=== PATIENT | female | born 1980 | race Caucasian/White ===

== ENCOUNTER 2016-08-02 08:00 | Outpatient (CLI) | payer MEDICAID | END 2016-08-02 08:01 | disposition home or self-care (01) | DX: Z36 Encounter for antenatal screening of mother (principal) ==

== ENCOUNTER 2016-08-14 22:34 | Inpatient (IN) | payer MEDICAID ==
[2016-08-15] MEDS ORDERED: ONDANSETRON 4 MG/2 ML VIAL IVP PRN (00:10)
[2016-08-15] MEDS ORDERED: fentaNYL 100 MCG/2 ML VIAL IVP PRN (00:10)
[2016-08-15] MEDS ORDERED: SODIUM CHLORIDE FLUSH 0.9% 10 ML SYRINGE IVP ONE ×3 (00:18→09:32)
[2016-08-15] MEDS ORDERED: PENICILLIN G POTASSIUM 5,000,000 UNIT in SODIUM CHLORIDE 0.9% MINIBAG 100 ML IV ONE (00:21)
[2016-08-15] MEDS ORDERED: LACTATED RINGERS 1,000 ML IV SCH (00:25)
[2016-08-15] MEDS ORDERED: LIDOCAINE 1% 50 ML MDV ONE (03:24)
[2016-08-15] MEDS ORDERED: OXYTOCIN/LACTATED RINGERS 250 ML IV ONE (03:56)
[2016-08-15] MEDS ORDERED: PENICILLIN G POTASSIUM 2,500,000 UNIT in SODIUM CHLORIDE 0.9% 100ML 100 ML IV SCH (05:00)
[2016-08-15] MEDS ORDERED: oxyCOD/ACETAMIN 5 MG/325 MG TABLET PO PRN (05:43)
[2016-08-15] MEDS ORDERED: ONDANSETRON ODT 4 MG TABLET PO PRN (05:43)
[2016-08-15] MEDS ORDERED: HYDROCORTISONE/PRAMOXINE 10 GM PR PRN (05:43)
[2016-08-15] MEDS ORDERED: ACETAMINOPHEN 325 MG TABLET PO PRN (05:43)
[2016-08-15] MEDS: IBUPROFEN 800 MG TABLET PO SCH ×3 (07:13→19:20)
[2016-08-15] MEDS: SIMETHICONE CHEW 80 MG TABLET PO SCH ×3 (07:14→23:06)
[2016-08-15] MEDS: DOCUSATE SODIUM 100 MG CAPSULE PO SCH ×2 (17:52→20:30)
[2016-08-16] MEDS: IBUPROFEN 800 MG TABLET PO SCH ×2 (01:47→08:50)
[2016-08-16] MEDS: SIMETHICONE CHEW 80 MG TABLET PO SCH (07:46)
[2016-08-16] MEDS: DOCUSATE SODIUM 100 MG CAPSULE PO SCH (08:50)
== END 2016-08-16 13:40 | disposition home or self-care (01) | DRG 775 ==
PROC: 10E0XZZ Delivery of Products of Conception, External Approach (ICD-10-PCS; principal; 2016-08-15)
DX: O99.824 Streptococcus B carrier state complicating childbirth (principal); O62.3 Precipitate labor; Z87.891 Personal history of nicotine dependence; Z3A.37 37 weeks gestation of pregnancy; Z37.0 Single live birth

== ENCOUNTER 2018-09-14 10:36 | Outpatient (CLI) | payer MEDICAID ==
--- NOTE | 2018-09-14 15:04 | Mammography Report ---
Reason: BREAST MASS OR LUMP Procedure Date: 09/14/2018 Accession Number: [id number] / [id number] Procedure: SAMEERA - Diagnostic Dig Bilat CPT Code: FULL RESULT: EXAM: Diagnostic Dig Bilat DATE: 09/14/2018 11:17 AM CLINICAL HISTORY: Palpable left breast lump which has since resolved following antibiotic therapy. No reported risk factors. TECHNIQUE: Bilateral CC and MLO as well as left mL images are obtained. Bilateral focused breast ultrasound was performed. COMPARISON: None FINDINGS: The breasts demonstrate scattered fibroglandular densities bilaterally. In the right upper outer breast, 11 cm from the nipple is a cluster of small well-circumscribed nodules individually measuring 5 mm or less on MLO image 7 and CC image 15. Similarly, in the left posterior lateral breast approximately 9 cm from the nipple is a cluster of nodules individually measuring 5 mm or less on MLO image 13 and CC image 9. Focused right breast ultrasound demonstrates an interconnected cluster of cysts with vascularity within the interstitium by color Doppler, well demarcated margins, increased through transmission and complex avascular content with individual cysts measuring up to 0.5 cm. In the left breast, a similar cluster of cysts with complex contents, increased through transmission and demonstrable blood flow in the intervening interstitium is identified with a clear connection to the glandular ductal system. Given bilateral similarity in appearance, the findings are felt to be ductal in origin on both sides, probably benign. No suspicious architectural distortions, calcifications or masses are identified on either side. IMPRESSION: Probable benign findings RECOMMENDATION: Recommend diagnostic bilateral breast ultrasound in 6 months. BIRADS CATEGORY 3 STANDARD QUALIFYING STATEMENTS: 1. This examination was not reviewed with the aid of Computer-Aided Detection (CAD). 2. A negative or benign imaging report should not delay biopsy if clinically suspicious findings are present. Consider surgical consultation if warrented. More than 5% of cancers are not identified by imaging. 3. Dense breasts may obscure an underlying neoplasm. 4. This examination was reviewed with the aid of 3D imaging (tomography).
== END 2018-09-14 10:37 | disposition home or self-care (01) ==
LOC: DI 10:36
PROVIDERS: ATTEND Obstetrics & Gynecology
DX: N63.20 Unspecified lump in the left breast, unspecified quadrant (principal)
CPT/HCPCS: 76642; 77066

== ENCOUNTER 2021-06-22 12:44 | Outpatient (CLI) | payer MEDICAID ==
--- NOTE | 2021-06-23 14:09 | Mammography Report ---
BILATERAL DIGITAL DIAGNOSTIC MAMMOGRAM 3D/2D: 06/22/2021 CLINICAL: Follow up of the bilateral breast, due for bilateral imaging. Comparison is made to exams dated: 09/14/2018 ultrasound and 09/14/2018 mammogram - [facility]. The tissue of both breasts is heterogeneously dense. This may lower the sensitivity of m ammography. There are stable masses in both breasts. No significant masses, calcifications, or other findings are seen in either breast. There has been no significant interval change. IMPRESSION: INCOMPLETE: NEEDS ADDITIONAL IMAGING EVALUATION Stable appearance of bilateral breast masses as described on August 2018 mammograms. These have rem ained stable for over two years and are most certainly benign. However, these correlated with probabl y benign masses seen on prior ultrasound evaluation and remain indeterminate. An ultrasound is recommended for further evaluation and is scheduled to immediately follow this exami nation. This exam was interpreted at Station ID: [id number]. NOTE: For mammograms, a report in lay terms will be sent to the patient. Approximately 15% of breast malignancies will not be visualized mammographically. In the management of a palpable breast mass, a negative mammogram must not discourage biopsy of a clinically suspicious lesion. Electronically Signed By: Dieter Barcenas M.D. aty/:06/22/2021 15:05:18 ACR BI-RADS Category 0: Incomplete 3340F PARENCHYMAL PATTERN: (D) - The breast(s) demonstrate(s) heterogeneously dense fibroglandular jennifer howell. BI-RADS CATEGORY: (0) - 0 Ultrasound [id number] Immediate follow-up LATERALITY: (B)
--- NOTE | 2021-06-23 14:09 | Ultrasound Report ---
LIMITED ULTRASOUND OF RIGHT BREAST: 06/22/2021 CLINICAL: Patient returns for sonographic evaluation of right breast mass. Comparison is made to exams dated: 06/22/2021 mammogram, 09/14/2018 ultrasound, and 09/14/2018 mammogra [facility]. Color flow ultrasound of the right breast 9 o'clock region was performed. Valdes scale images of the r eal-time examination were reviewed. There is a 0.6 cm x 0.4 cm x 0.5 cm oval mass with a circumscribed margin in the right breast at 9 o' clock posterior depth 9 cm from the nipple. This oval mass is hypoechoic. This abnormality is not s ignificantly changed and correlates with mammography findings. Color flow imaging demonstrates that there is an adjacent vascularity. IMPRESSION: BENIGN There is no sonographic evidence of malignancy. The 0.6 cm x 0.4 cm x 0.5 cm oval mass in the right breast resembles a lymph node or a fibroadenoma a nd is benign as it has remained stable for over two years. A 1 year screening mammogram is recommended. Findings and recommendations were conveyed to the patient during today's evaluation. This exam was interpreted at Station ID: [id number]. Electronically Signed By: Dieter Barcenas M.D. aty/:06/22/2021 15:09:27 Ultrasound BI-RADS: 2 Benign BI-RADS CATEGORY: (2) - 2 RECOMMENDATION: (ANNUAL) - Recommend routine annual screening mammography. [id number] 1 year screening LATERALITY: (B)
--- NOTE | 2021-06-23 14:09 | Ultrasound Report ---
LIMITED ULTRASOUND OF LEFT BREAST: 06/22/2021 CLINICAL: Patient returns for sonographic evaluation of left breast mass. Comparison is made to exams dated: 06/22/2021 mammogram, 09/14/2018 ultrasound, and 09/14/2018 mammogra - [facility]. Color flow ultrasound of the left breast 3 o'clock region was performed. Valdes scale images of the r eal-time examination were reviewed. There is a cluster of oval masses with circumscribed margins in the left breast at 3 o'clock posterio r depth. This cluster of oval masses is hypoechoic with possible fatty hilum and hilar vascularity. These abnormalities are not significantly changed. They measure up to 0.5 cm and 1.0 cm respectivel y. They are again visualized immediately adjacent to each other. IMPRESSION: BENIGN There is no sonographic evidence of malignancy. The cluster of oval masses in the left breast most likely represent adjacent lymph nodes versus less likely fibroadenomas and is benign as they have remained stable for over two years. A 1 year screening mammogram is recommended. Findings and recommendations were conveyed to the patient during today's evaluation. This exam was interpreted at Station ID: [id number]. Electronically Signed By: Dieter Barcenas M.D. aty/:06/22/2021 15:12:59 Ultrasound BI-RADS: 2 Benign BI-RADS CATEGORY: (2) - 2 RECOMMENDATION: (ANNUAL) - Recommend routine annual screening mammography. [id number] 1 year screening LATERALITY: (B)
== END 2021-06-22 12:45 | disposition home or self-care (01) ==
LOC: DI 12:44
PROVIDERS: ATTEND Obstetrics & Gynecology
DX: R92.8 Other abnormal and inconclusive findings on diagnostic imaging of breast (principal)

== ENCOUNTER 2021-09-24 09:24 | Outpatient (CLI) | payer MEDICAID ==
[2021-09-24 12:17] LABS: BASOPHILS # (AUTO) 0.1 10^3/uL (0.0-0.1); BASOPHILS % (AUTO) 0.8 %; EOSINOPHILS # (AUTO) 0.1 10^3/uL (0.0-0.7); EOSINOPHILS % (AUTO) 1.5 %; HGB - HEMOGLOBIN 15.1 g/dL (12.0-16.0); LYMPHOCYTES # (AUTO) 2.4 10^3/uL (1.5-3.5); LYMPHOCYTES % (AUTO) 28.5 %; MEAN CORPUSCULAR HEMOGLOBIN 30.9 pg (27.0-31.0); MEAN CORPUSCULAR HGB CONC 32.8 g/dL (32.0-36.0); MEAN CORPUSCULAR VOLUME 94.3 fL (81.0-99.0); MONOCYTES # (AUTO) 0.6 10^3/uL (0.0-1.0); MONOCYTES % (AUTO) 6.8 %; NEUTROPHILS # (AUTO) 5.2 10^3/uL (1.5-6.6); NEUTROPHILS % (AUTO) 62.2 %; PLT - PLATELET COUNT 225 10^3/uL (130-450); RED BLOOD COUNT 4.88 10^6/uL (4.20-5.40); RED CELL DISTRIBUTION WIDTH 12.8 % (12.0-15.0); WHITE BLOOD COUNT 8.4 x10^3/uL (4.8-10.8)
[2021-09-24 12:36] LABS: ALBUMIN 4.4 g/dL (3.2-5.5); ALBUMIN/GLOBULIN RATIO 1.4 (1.0-2.2); ALKALINE PHOSPHATASE 32 IU/L (42-121); ALT ALANINE AMINOTRANSFERASE 15 IU/L (10-60); AST ASPARTATE AMINOTRANSFERASE 14 IU/L (10-42); BILIRUBIN,TOTAL 0.9 mg/dL (0.2-1.0); BUN - BLOOD UREA NITROGEN 14 mg/dL (6-20); CALCIUM 9.6 mg/dL (8.5-10.3); CARBON DIOXIDE - CO2 26 mmol/L (21-32); CHLORIDE 102 mmol/L (101-111); CHOL/HDL RATIO 3.5 (<4.4); CHOLESTEROL 131 mg/dL; CREATININE 0.8 mg/dL (0.4-1.0); GFR - MDRD 79 (>89); GLUCOSE 92 mg/dL (70-100); HDL CHOLESTEROL 37 mg/dL; LDL CHOLESTEROL,CALCULATED 81 mg/dL; LDL/HDL RATIO 2.2 (<4.4); POTASSIUM 4.6 mmol/L (3.5-5.0); SODIUM 134 mmol/L (135-145); TOTAL PROTEIN 7.5 g/dL (6.7-8.2); TRIGLYCERIDES 63 mg/dL; VLDL CHOLESTEROL 13 mg/dL
[2021-09-24 12:41] LABS: THYROID STIMULATING HORMONE 1.4 uIU/mL (0.34-5.60)
== END 2021-09-24 09:25 | disposition home or self-care (01) ==
LOC: LAB.N 09:24
PROVIDERS: ATTEND Registered Nurse
DX: Z13.228 Encounter for screening for other metabolic disorders (principal); Z13.29 Encounter for screening for other suspected endocrine disorder; Z13.0 Encounter for screening for diseases of the blood and blood-forming organs and certain disorders involving the immune mechanism
CPT/HCPCS: 36415; 80050; 80061; 83721

== ENCOUNTER 2022-08-25 12:39 | Outpatient (CLI) | payer MEDICAID ==
--- NOTE | 2022-08-26 08:25 | Mammography Report ---
BILATERAL DIGITAL SCREENING MAMMOGRAM 3D/2D: 08/25/2022 CLINICAL: Routine screening. Comparison is made to exams dated: 06/22/2021 ultrasound, 06/22/2021 ultrasound, 06/22/2021 mammogram, 09/14/2018 ultrasound, and 09/14/2018 mammogram - [facility]. Both breasts are heterogeneously dense, which may obscure small masses (category c / 51-75% glandular tissue). There is a possible developing new irregular high density asymmetry with a spiculated margin in the r ight breast at 11 o'clock middle depth. There is architectural distortion associated with the asymme try. No other significant masses, calcifications, or other findings are seen in either breast. IMPRESSION: INCOMPLETE: NEEDS ADDITIONAL IMAGING EVALUATION The possible developing new irregular high density asymmetry in the right breast is indeterminate. A dditional views with possible ultrasound are recommended. Based on the Tyrer Cuzick model (a risk assessment model) the patients lifetime risk is 10.2% and he r 10 year risk is 1.5%. According to the ACR, ACS, and NCCN guidelines, an annual breast MRI exam kayley ng with mammogram is recommended if the patients lifetime risk is 20% or greater. This exam was interpreted at Station ID: [id number]. NOTE: For mammograms, a report in lay terms will be sent to the patient. Approximately 15% of breast malignancies will not be visualized mammographically. In the management of a palpable breast mass, a negative mammogram must not discourage biopsy of a clinically suspicious lesion. Electronically Signed By: Karo mckeon/:08/25/2022 16:32:53 ACR BI-RADS Category 0: Incomplete 3340F PARENCHYMAL PATTERN: (D) - The breast(s) demonstrate(s) heterogeneously dense fibroglandular parenchy ma. BI-RADS CATEGORY: (0) - 0 Mammo and [place] [id number] Immediate follow-up LATERALITY: (B)
== END 2022-08-25 12:40 | disposition home or self-care (01) ==
LOC: DI.N 12:39
DX: Z12.31 Encounter for screening mammogram for malignant neoplasm of breast (principal); R92.8 Other abnormal and inconclusive findings on diagnostic imaging of breast

== ENCOUNTER 2022-09-15 12:39 | Outpatient (CLI) | payer MEDICAID ==
--- NOTE | 2022-09-16 16:58 | Mammography Report ---
UNILATERAL RIGHT DIGITAL DIAGNOSTIC MAMMOGRAM 3D/2D WITH SPOT COMPRESSION: 09/15/2022 CLINICAL: Patient returns today to evaluate a focal asymmetry in the right breast. Comparison is made to exams dated: 08/25/2022 mammogram, 06/22/2021 mammogram, 09/14/2018 mammogram, and 06/22/2021 ultrasound - [facility]. The right breast is heterogeneously dense, which may obscure small masses (category c / 51-75% glandu lar tissue). There is a possible asymmetry in the right breast at 11 o'clock middle depth. This is not seen in ad ditional views. No other significant masses or calcifications are seen in the breast. IMPRESSION: INCOMPLETE: NEEDS ADDITIONAL IMAGING EVALUATION The possible asymmetry in the right breast is indeterminate. A targeted ultrasound is recommended and will immediately follow. Based on the Tyrer Cuzick model (a risk assessment model) the patients lifetime risk is 10.2% and he r 10 year risk is 1.5%. According to the ACR, ACS, and NCCN guidelines, an annual breast MRI exam kayley ng with mammogram is recommended if the patients lifetime risk is 20% or greater. This exam was interpreted at Station ID: [id number]. NOTE: For mammograms, a report in lay terms will be sent to the patient. Approximately 15% of breast malignancies will not be visualized mammographically. In the management of a palpable breast mass, a negative mammogram must not discourage biopsy of a clinically suspicious lesion. Electronically Signed By: Jozef Medina M.D. slc/:09/15/2022 13:12:10 ACR BI-RADS Category 0: Incomplete 3340F PARENCHYMAL PATTERN: (D) - The breast(s) demonstrate(s) heterogeneously dense fibroglandular parmichelle howell. BI-RADS CATEGORY: (0) - 0 Ultrasound [id number] Immediate follow-up LATERALITY: (B)
--- NOTE | 2022-09-16 16:58 | Ultrasound Report ---
LIMITED ULTRASOUND OF RIGHT BREAST: 09/15/2022 CLINICAL: Patient returns today to evaluate an asymmetry in the right breast. Comparison is made to exams dated: 09/15/2022 mammogram, 08/25/2022 mammogram, 06/22/2021 mammogram, and 09/14/2018 mammogram - [facility]. Real-time ultrasound of the right breast 11 o'clock region was performed. Valdes scale images of the r eal-time examination were reviewed. No significant abnormalities were seen sonographically in the right breast in the region of possible architectural distortion. IMPRESSION: NEGATIVE There is no sonographic evidence of malignancy. A 1 year screening mammogram is recommended. Exam findings were conveyed to the patient. This exam was interpreted at Station ID: [id number]. Electronically Signed By: Jozef Medina M.D. slc/:09/15/2022 14:01:10 Ultrasound BI-RADS: 1 Negative BI-RADS CATEGORY: (1) - 1 Mammogram [id number] 1 year screening LATERALITY: (B)
== END 2022-09-15 12:40 | disposition home or self-care (01) ==
LOC: DI 12:39
PROVIDERS: ATTEND Registered Nurse
DX: R92.8 Other abnormal and inconclusive findings on diagnostic imaging of breast (principal)